=== PATIENT | male | born 1980 | race African-American/Black ===

== ENCOUNTER 2024-01-05 13:35 | Emergency (ER) | payer SELFPAY ==
[~2024-01-05] VITALS: Ht 175.3 cm; Wt 80.0 kg
[2024-01-05 13:38] VITALS: TEMP 98.5; O2SAT 98
[2024-01-05] MEDS ORDERED: MORPHINE SULFATE 4 MG/ML INJ (FOR IV/IM USE) IV STA (13:44)
[2024-01-05] MEDS ORDERED: ONDANSETRON HCL 4MG/2ML INJ IV STA (13:44)
[2024-01-05 15:33] LABS: BASOPHILS % 0.3 % (0.0-2.0); HEMATOCRIT. 41.4 % (42.0-52.0); HEMOGLOBIN. 14.1 g/dL (14.0-18.0); MEAN CORPUSCULAR HEMOGLOBIN 29.2 pg (28.0-32.0); MEAN CORPUSCULAR HGB CONC 34.2 g/dL (31.0-37.0); MEAN CORPUSCULAR VOLUME 85.5 fL (80.0-94.0); MEAN PLATELET VOLUME 8.2 fl (7.4-10.4); NEUTROPHILS % 77.7 % (40.0-76.0); PLATELET 234 x1000/uL (130-400); RED BLOOD CELL COUNT 4.84 mill/uL (4.7-6.1); RED CELL DISTRIBUTION WIDTH 15.2 % (11.6-14.6); WHITE BLOOD COUNT 9.1 x1000/uL (4.5-11.0)
[2024-01-05 15:37] LABS: CHLORIDE 109 mEq/L (98-107); POTASSIUM 3.8 mEq/L (3.5-5.1); SODIUM 141 mEq/L (136-145)
[2024-01-05 15:38] LABS: CALCIUM 9.7 mg/dL (8.7-10.4); CARBON DIOXIDE 25 mEq/L (21-32)
[2024-01-05 15:41] LABS: PROTHROMBIN TIME 11.3 sec (9.6-11.0)
[2024-01-05 15:43] LABS: CREATININE 1.2 mg/dL (0.6-1.3); GLUCOSE 105 mg/dL (70-105); UREA NITROGEN BLOOD 11 mg/dL (9-23)
[2024-01-05 15:45] LABS: ALANINE AMINOTRANSFERASE 10 IU/L (10-49); ALBUMIN 4.6 g/dL (3.2-4.8); ASPARTATE AMINOTRANSFERASE 18 IU/L (<34); BILIRUBIN DIRECT 0.1 mg/dL (<=3.0); BILIRUBIN TOTAL 0.3 mg/dL (0.1-1.0); PROTEIN TOTAL 7.7 g/dL (6.0-8.3)
[2024-01-05 15:48] LABS: ETHANOL BLOOD < 10 mg/dL (<10)
[2024-01-05] MEDS: MORPHINE SULFATE 4 MG/ML INJ (FOR IV/IM USE) IV NR (15:52)
[2024-01-05] MEDS: SODIUM CHLORIDE 0.9% 1,000 ML IV ONE (15:52)
[2024-01-05] MEDS: ONDANSETRON HCL 4MG/2ML INJ IV NR (15:53)
[2024-01-05 16:43] VITALS: BP 166/84; PULSE 98; RESP 18
[2024-01-05] MEDS: KETOROLAC 15MG/ML VIAL IV ONE (16:43)
== END 2024-01-05 16:37 | disposition left against medical advice (07) ==
LOC: ER 13:35
DX: R10.32 Left lower quadrant pain (principal); K50.90 Crohn's disease, unspecified, without complications
CPT/HCPCS: 80076; 80048; 80320; 83690; 85025; 85610; 36415; 74176; 96361; 96374; 96375; 99291; J2405; J2270; J7030; G0480